=== PATIENT | female | born 1980 | race Caucasian/White ===

== ENCOUNTER 2024-08-03 22:52 | Emergency (ER) | payer BC ==
[2024-08-03] MEDS: Lidocaine 1% with EPINEPHrine 1:100,000 20 ML MDV INJECT ONE (23:36)
[2024-08-04] MEDS: Bacitracin Oint 1 GM U/D Packet TOP ONE (01:12)
== END 2024-08-04 01:24 | disposition home or self-care (01) ==
LOC: JP.ED 22:52
DX: S01.112A Laceration without foreign body of left eyelid and periocular area, initial encounter (principal); S43.492A Other sprain of left shoulder joint, initial encounter; S50.12XA Contusion of left forearm, initial encounter; W10.9XXA Fall (on) (from) unspecified stairs and steps, initial encounter; Z79.899 Other long term (current) drug therapy; Y93.89 Activity, other specified
CPT/HCPCS: 12013; 70450; 70486; 72192; 73030; 73090; 76377; 99283; J2004